=== PATIENT | female | born 1935 | race Caucasian/White ===

== ENCOUNTER → 2024-03-06 15:07 | Outpatient (CLI) | payer MEDICARE, SELFPAY ==
--- NOTE | 2024-03-06 | DI.US.S_ITS ---
PROCEDURE: US CAROTID DOPPLER BI INDICATIONS: CAROTID BRUIT TECHNIQUE: Color and pulse Doppler interrogation was performed of both carotid systems, with image documentation and velocity measurements. COMPARISON: None. FINDINGS: Stenosis calculations are based on SRU (Society of Radiologists in Ultrasound) criteria. Right side: Brachial blood pressure: 142/72 mm Hg. Common carotid artery peak systolic velocity: 64 cm/sec. Internal carotid artery peak systolic velocity: 60 cm/sec. Internal carotid artery end diastolic velocity: 11 cm/sec. External carotid artery peak systolic velocity: 101 cm/sec. ICA/CCA peak systolic ratio: 0.9 . Walton scale imaging description: Extensive atherosclerotic plaque Percent internal carotid artery stenosis: Less than 50 percent . Vertebral artery: Flow direction is antegrade. Left side: Brachial blood pressure: 134/78 mm Hg. Common carotid artery peak systolic velocity: 50 cm/sec. Internal carotid artery peak systolic velocity: 68 cm/sec. Internal carotid artery end diastolic velocity: 21 cm/sec. External carotid artery peak systolic velocity: 56 cm/sec. ICA/CCA peak systolic ratio: 1.4 . Walton scale imaging description: Moderate atherosclerotic plaque Percent internal carotid artery stenosis: Less than 50 percent . Vertebral artery: Flow direction is antegrade. IMPRESSION: Less than 50 percent stenosis of the internal carotid arteries by peak systolic velocity criteria. Dictated by: Barry Hidalgo M.D. on 03/06/2024 at 16:54 Approved by: Barry Hidalgo M.D. on 03/06/2024 at 16:56
== END ==
PROVIDERS: PCP Internal Medicine; Referring Provider Internal Medicine Interventional Cardiology; Visit Provider Internal Medicine Interventional Cardiology
DX: R09.89 Other specified symptoms and signs involving the circulatory and respiratory systems (principal); I65.23 Occlusion and stenosis of bilateral carotid arteries
CPT/HCPCS: 93880

== ENCOUNTER 2025-02-08 11:43 | Emergency (ER) | payer MEDICARE, SELFPAY ==
[2025-02-08] VITALS (28 sets, daily range): BP systolic 117–178; BP diastolic 58–116; PULSE 70–132; RESP 11–33; TEMP 37.3; O2SAT 82–100; BMI 16.4
--- NOTE | 2025-02-08 11:56 | DI.RAD.S_ITS ---
PROCEDURE: XR HIP W PEL IF DONE RT 2V INDICATIONS: fall on Saturday; right hip and low back pain TECHNIQUE: AP pelvis with lateral view(s) of the right hip(s). COMPARISON: None. FINDINGS: Bones: Diffuse osteopenia. No acute fractures identified. Degenerative changes of the bilateral hips. Lower lumbar spondylosis. No suspicious osseous lesions. Soft tissues: Nonspecific bowel gas pattern. Moderate amount of dense fecal material noted in the region of the rectum and ascending colon. Multiple air-filled loops of mildly distended bowel throughout. Partially imaged aorto bi-iliac stent graft. Moderate atherosclerotic vascular calcifications. IMPRESSION: Pelvis and right hip without fracture or dislocation. Degenerative changes of the hips. If there is high clinical suspicion for occult fracture, further evaluation with CT or MRI can be considered. Dictated by: Dionisio Hunt M.D. on 02/08/2025 at 12:23 Approved by: Dionisio Hunt M.D. on 02/08/2025 at 12:26
--- NOTE | 2025-02-08 12:18 | PC.NURSE ---
Pt is able to stand and transfer to [facility]. Warm blankets provided.
--- NOTE | 2025-02-08 13:16 | DI.CT.S_ITS ---
PROCEDURE: CT ABDOMEN PELVIS WO CON INDICATIONS: low back and hip pain TECHNIQUE: Axial sections were acquired from the lung bases to the pubic symphysis. Coronal and sagittal reformats were performed. For radiation dose reduction, the following was used: automated exposure control, adjustment of mA and/or kV according to patient size. COMPARISON: [facility], CT, CT ANGIO AORTA RUNOFF, 10/07/2024, 9:24. [facility], CT, CT ANGIO CHEST PE, 11/11/2024, 18:54. FINDINGS: Image quality: Diagnostic. Lower Chest: Prosthetic aortic valve is present. 4 mm subpleural nodule is seen at the posterolateral left lung base, unchanged when compared to the CT from 11/11/2024. Small bilateral pleural effusions. URINARY: Right Kidney: 5 mm calculus is seen at the superior pole the right kidney (900 Hounsfield units). No hydronephrosis. Right Ureter: No hydroureter. Left Kidney: Small nonobstructing renal calculi measuring 3-4 mm. Hyperdense hemorrhagic cyst is seen at the interpolar region of the left kidney. No hydronephrosis. Left Ureter: No hydroureter. Bladder: Normal wall thickness. No stones. ABDOMEN: Liver: No contour-deforming solid mass. Gallbladder: Status post cholecystectomy. Biliary ducts: No biliary dilation. Pancreas: No ductal dilation. Spleen: Size is within normal limits. Adrenal Glands: No adrenal nodules. Stomach and Bowel: Moderate to large volume of stool in the colon. Mild colonic diverticulosis without acute diverticulitis. Peritoneum: No abnormal intraperitoneal fluid. No free air. Ventral Wall: No hernia. Abdominal Nodes: No enlarged retroperitoneal or mesenteric lymph nodes. Vessels: Aortoiliac endovascular stent graft is present PELVIS: Pelvic Organs: Status post hysterectomy. Pelvic Nodes: Unremarkable. Miscellaneous: No inguinal hernias are seen. Bones: Generalized osteopenia. Acute compression fracture of the L1 vertebral body with minimal loss of vertebral body height and mild surrounding soft tissue edema. Finding is new when compared to the CT from 10/07/2024. There is 1-2 mm retropulsion of osseous fragments without significant narrowing of the bony spinal canal or neural foraminal narrowing. IMPRESSION: 1. Acute L1 vertebral body compression fracture with minimal loss of vertebral body height. 1-2 mm retropulsion of osseous fragments without significant narrowing of the bony spinal canal. 2. Bilateral nonobstructing renal calculi. No hydronephrosis or ureteral calculus. 3. Colonic diverticulosis. Moderate to large volume of stool in the colon. 4. Stable aortoiliac endovascular stent graft. Approved by: Horace Mock M.D. on 02/08/2025 at 13:53
--- NOTE | 2025-02-08 13:43 | ED.BACK ---
HPI - Back Pain/Injury General Chief Complaint: Back Pain/Injury Stated Complaint: Fell and hurt back , on blood thinners Time Seen by Provider: 02/08/25 13:15 Source: patient and family History of Present Illness HPI Narrative: 89-year-old female with history of dementia, had ground level fall Saturday 3 days ago, persisting bilateral hip pain since that time, decreased ambulation but still had been bearing weight, no new fall or injury known to the who is historian at bedside. Not known to have struck her head. She does not take blood thinner medications per . Also has new low back pain. No weakness or numbness to either leg known. No incontinence urine or stool patterns that are new. Related Data Allergies Allergy/AdvReac Type Severity Reaction Status Date / Time No Known Drug Allergies Allergy Verified 02/08/25 11:47 Patient History Social History Smoking Status: Former smoker Smoking Status: Former smoker Exam Narrative Exam Narrative: GENERAL: Well-developed patient, in mild distress. HEAD: Atraumatic. Normocephalic. EYES: Pupils equal round and reactive. Extraocular motions intact. No scleral icterus. No injection or drainage. ENT: Nose without bleeding, purulent drainage. Throat without erythema, tonsillar hypertrophy or exudate. Airway patent. NECK: Trachea midline. Non tender CARDIOVASCULAR: Regular rate and rhythm without murmurs, gallops, or rubs. RESPIRATORY: Clear to auscultation. Breath sounds equal bilaterally. No wheezes, rales, or rhonchi. GASTROINTESTINAL: Abdomen soft, non-tender, nondistended. EXTREMITIES: No limb length discrepancy, mild tenderness left anterior hip without bruising or skin changes, no tenderness over the left greater trochanteric region. No tenderness over mid distal left thigh, knee, foreleg, ankle or foot. BACK: Nontender without deformity or crepitance. No flank tenderness. NEURO: AOx3. Motor functions grossly nonfocal SKIN: No rash or erythema of visible areas Initial Vital Signs Initial Vital Signs: Vital Signs Temperature 99.2 F 02/08/25 11:47 Pulse Rate 70 02/08/25 11:47 Respiratory Rate 18 02/08/25 11:47 Blood Pressure 160/70 H 02/08/25 11:47 Course Orders Ordered: ED Orders 02/08/25 13:16 CT abdomen pelvis wo con Stat 02/08/25 14:36 XR chest 1V Stat RT Consult Eval and Treat NOW 02/08/25 16:07 CBC Auto Diff [Complete Blood Count AUTO DIFF] Stat CMP [Comprehensive Metabolic Panel] Stat Prothrombin Time INR Stat 02/08/25 16:40 Consult to Physical Therapy Evaluate & Treat Discontinued Medications POTASSIUM CHLORIDE IN WATER (Potassium Cl 10 Meq/100 Ml Leni) 10 meq in 100 mls @ 100 mls/hr IV Q1H BIBI Stop: 02/08/25 18:59 Last Infusion: 02/08/25 19:48 Dose: Infused Documented By: Admin: 02/08/25 18:29 Dose: 100 mls/hr Documented By: Infusion: 02/08/25 18:29 Dose: Infused Documented By: Admin: 02/08/25 17:35 Dose: 100 mls/hr Documented By: Lorazepam (Lorazepam 2 Mg/Ml Inj) 2 mg IV NOW ONE Stop: 02/08/25 17:16 Last Admin: 02/08/25 17:28 Dose: 2 mg Documented By: Midazolam HCl (Midazolam 5 Mg/Ml Vial) 1 mg IM NOW ONE Stop: 02/08/25 15:55 Last Admin: 02/08/25 15:55 Dose: 1 mg Documented By: OLLIE Midazolam HCl (Midazolam 2 Mg/2 Ml Vial) 1 mg IV NOW ONE Stop: 02/08/25 16:11 Last Admin: 02/08/25 16:11 Dose: 1 mg Documented By: OLLIE Midazolam HCl (Midazolam 2 Mg/2 Ml Vial) 2 mg IV NOW ONE Stop: 02/08/25 17:14 Last Admin: 02/08/25 18:16 Dose: Not Given Documented By: Vital Signs Vital signs: Vital Signs - 8 hr 02/08/25 14:25 02/08/25 14:25 02/08/25 14:30 Pulse Rate 95 H Respiratory Rate Blood Pressure 142/67 H 152/72 H Pulse Oximetry Oxygen Delivery Method Oxygen Flow Rate 02/08/25 14:30 02/08/25 14:43 02/08/25 15:00 Pulse Rate 92 H 90 92 H Respiratory Rate 11 L 21 Blood Pressure Pulse Oximetry 86 L 92 94 Oxygen Delivery Method Room Air Nasal Cannula Oxygen Flow Rate 3 02/08/25 15:00 02/08/25 15:30 02/08/25 15:30 Pulse Rate 97 H Respiratory Rate 21 Blood Pressure 150/69 H 163/73 H Pulse Oximetry 91 Oxygen Delivery Method Oxygen Flow Rate 02/08/25 15:41 02/08/25 16:00 02/08/25 16:00 Pulse Rate 112 H 132 H Respiratory Rate 14 31 H Blood Pressure 173/83 H Pulse Oximetry 98 Oxygen Delivery Method Oxygen Flow Rate 02/08/25 16:15 02/08/25 16:17 02/08/25 16:21 Pulse Rate 109 H 112 H 105 H Respiratory Rate 25 H 14 23 Blood Pressure Pulse Oximetry 94 93 93 Oxygen Delivery Method Nasal Cannula Nasal Cannula Nasal Cannula Oxygen Flow Rate 4 4 4 02/08/25 16:21 02/08/25 16:30 02/08/25 16:30 Pulse Rate 101 H Respiratory Rate 23 Blood Pressure 126/60 117/58 L Pulse Oximetry 92 Oxygen Delivery Method Oxygen Flow Rate 02/08/25 16:45 02/08/25 17:00 02/08/25 17:01 Pulse Rate 103 H 110 H 111 H Respiratory Rate 23 33 H 32 H Blood Pressure Pulse Oximetry 94 93 91 Oxygen Delivery Method Nasal Cannula Oxygen Flow Rate 4 02/08/25 17:01 02/08/25 17:15 02/08/25 17:30 Pulse Rate 103 H 89 Respiratory Rate 27 H 25 H Blood Pressure 156/116 H Pulse Oximetry 97 98 Oxygen Delivery Method Oxygen Flow Rate 02/08/25 17:30 02/08/25 17:45 02/08/25 18:00 Pulse Rate 93 H 87 Respiratory Rate 25 H 24 Blood Pressure 154/70 H Pulse Oximetry 98 97 Oxygen Delivery Method Oxygen Flow Rate 02/08/25 18:00 02/08/25 18:15 02/08/25 18:30 Pulse Rate 89 91 H Respiratory Rate 24 25 H Blood Pressure 159/73 H Pulse Oximetry 95 94 Oxygen Delivery Method Oxygen Flow Rate 02/08/25 18:30 02/08/25 18:45 02/08/25 18:46 Pulse Rate 85 89 Respiratory Rate 20 Blood Pressure 178/75 H Pulse Oximetry 82 L 94 Oxygen Delivery Method Oxygen Flow Rate 02/08/25 18:46 02/08/25 19:00 02/08/25 19:00 Pulse Rate 88 Respiratory Rate 22 Blood Pressure 141/63 H 140/65 Pulse Oximetry 92 Oxygen Delivery Method Oxygen Flow Rate 02/08/25 19:15 02/08/25 19:30 02/08/25 19:30 Pulse Rate 91 H 102 H Respiratory Rate 25 H 26 H Blood Pressure 153/90 H Pulse Oximetry 95 100 Oxygen Delivery Method Simple Mask Oxygen Flow Rate 4 02/08/25 19:45 02/08/25 20:00 02/08/25 20:00 Pulse Rate 104 H 93 H Respiratory Rate 24 26 H Blood Pressure 162/70 H Pulse Oximetry 99 99 Oxygen Delivery Method Room Air Room Air Oxygen Flow Rate MDM - Back Pain/Injury Lab Data Attestation: I reviewed the patient's lab results. Lab results narrative: White blood cell count 8200, hemoglobin 12.7, platelets adequate. Glucose 116. BUN 24 with creatinine 0.65 normal renal function. Sodium 138, potassium 3.1 low noted, serum chloride 96, serum CO2 35 elevated. Mild transaminase elevation, normal total bilirubin and alkaline phosphatase. 02/08/25 16:07 02/08/25 16:07 Labs: Lab Results 02/08/25 Range/Units 16:07 WBC 8.2 (4.5-11.0) X10^3/uL RBC 4.39 (4.0-5.2) X10^6/uL Hgb 12.7 (12.0-16.0) g/dL Hct 38.2 (36-46) % MCV 87.0 (80-100) fL MCH 28.9 (26-34) PG MCHC 33.3 (30-36) % RDW 16.3 H (11.6-14.8) % Plt Count 173 (150-400) X10^3/uL Neut % (Auto) 78.0 H (50-75) % Lymph % (Auto) 12.6 L (25-40) % [place] % (Auto) 8.1 (3-14) % Eos % (Auto) 0.8 L (2-4) % Baso % (Auto) 0.5 (0-2) % Neut # (Auto) 6400 (6375-8887) /uL Lymph # (Auto) 1000 L (2315-7686) /uL [place] # (Auto) 700 (0-900) /uL Eos # (Auto) 100 (0-450) /uL Baso # (Auto) 0 (0-100) /uL PT 12.6 H (9.4-12.5) SECONDS INR 1.1 (0.9-1.3) Sodium 138 (137-145) mmol/L Potassium 3.1 L (3.4-5.1) mmol/L Chloride 96 L (98-107) mmol/L Carbon Dioxide 35 H (22-32) mmol/L BUN 24 H (7-17) mg/dL Creatinine 0.65 (0.52-1.04) mg/dL Estimated GFR > 60 (>60) mL/min BUN/Creatinine Ratio 36.9 H (6-22) Glucose 116 H (80-110) mg/dL Calcium 9.7 (8.4-10.2) mg/dL Total Bilirubin 1.1 (0.2-1.3) mg/dL AST 41 H (14-36) IU/L ALT 40 H (<35) IU/L Alkaline Phosphatase 100 (38-126) U/L Total Protein 7.7 (6.3-8.2) g/dL Albumin 4.0 (3.5-5.0) g/dL Globulin 3.7 (1.7-4.1) g/dL Albumin/Globulin Ratio 1.1 (1.0-2.8) Imaging Data Extremity x-ray #1: Radiologist's Impression: [place] [address] XRay Report Signed Patient: Norah Gresham I MR#: [id number] : 1935 Acct:[id number] Age/Sex: 89 / F Date of Service: 02/08/25 Loc: ED Accession Number: [id number] Procedure: XR hip w pel if done RT 2V Ordering Provider: Vinay Tierney MD PROCEDURE: XR HIP W PEL IF DONE RT 2V INDICATIONS: fall on Saturday; right hip and low back pain TECHNIQUE: AP pelvis with lateral view(s) of the right hip(s). COMPARISON: None. FINDINGS: Bones: Diffuse osteopenia. No acute fractures identified. Degenerative changes of the bilateral hips. Lower lumbar spondylosis. No suspicious osseous lesions. Soft tissues: Nonspecific bowel gas pattern. Moderate amount of dense fecal material noted in the region of the rectum and ascending colon. Multiple air-filled loops of mildly distended bowel throughout. Partially imaged aorto bi-iliac stent graft. Moderate atherosclerotic vascular calcifications. IMPRESSION: Pelvis and right hip without fracture or dislocation. Degenerative changes of the hips. If there is high clinical suspicion for occult fracture, further evaluation with CT or MRI can be considered. Dictated by: Dionisio Hunt M.D. on 02/08/2025 at 12:23 Approved by: Dionisio Hunt M.D. on 02/08/2025 at 12:26 CT abdomen and pelvis: Radiologist's Impression: [address] [address] [address] Scan Report Signed Patient: Norah Gresham I MR#: [id number] : 1935 Acct:[id number] Age/Sex: 89 / F Date of Service: 02/08/25 Loc: ED Accession Number: [id number] Procedure: CT abdomen pelvis wo con Ordering Provider: Vinay Tierney MD PROCEDURE: CT ABDOMEN PELVIS WO CON INDICATIONS: low back and hip pain TECHNIQUE: Axial sections were acquired from the lung bases to the pubic symphysis. Coronal and sagittal reformats were performed. For radiation dose reduction, the following was used: automated exposure control, adjustment of mA and/or kV according to patient size. COMPARISON: [facility], CT, CT ANGIO AORTA RUNOFF, 10/07/2024, 9:24. [facility], CT, CT ANGIO CHEST PE, 11/11/2024, 18:54. FINDINGS: Image quality: Diagnostic. Lower Chest: Prosthetic aortic valve is present. 4 mm subpleural nodule is seen at the posterolateral left lung base, unchanged when compared to the CT from 11/11/2024. Small bilateral pleural effusions. URINARY: Right Kidney: 5 mm calculus is seen at the superior pole the right kidney (900 Hounsfield units). No hydronephrosis. Right Ureter: No hydroureter. Left Kidney: Small nonobstructing renal calculi measuring 3-4 mm. Hyperdense hemorrhagic cyst is seen at the interpolar region of the left kidney. No hydronephrosis. Left Ureter: No hydroureter. Bladder: Normal wall thickness. No stones. ABDOMEN: Liver: No contour-deforming solid mass. Gallbladder: Status post cholecystectomy. Biliary ducts: No biliary dilation. Pancreas: No ductal dilation. Spleen: Size is within normal limits. Adrenal Glands: No adrenal nodules. Stomach and Bowel: Moderate to large volume of stool in the colon. Mild colonic diverticulosis without acute diverticulitis. Peritoneum: No abnormal intraperitoneal fluid. No free air. Ventral Wall: No hernia. Abdominal Nodes: No enlarged retroperitoneal or mesenteric lymph nodes. Vessels: Aortoiliac endovascular stent graft is present PELVIS: Pelvic Organs: Status post hysterectomy. Pelvic Nodes: Unremarkable. Miscellaneous: No inguinal hernias are seen. Bones: Generalized osteopenia. Acute compression fracture of the L1 vertebral body with minimal loss of vertebral body height and mild surrounding soft tissue edema. Finding is new when compared to the CT from 10/07/2024. There is 1-2 mm retropulsion of osseous fragments without significant narrowing of the bony spinal canal or neural foraminal narrowing. IMPRESSION: 1. Acute L1 vertebral body compression fracture with minimal loss of vertebral body height. 1-2 mm retropulsion of osseous fragments without significant narrowing of the bony spinal canal. 2. Bilateral nonobstructing renal calculi. No hydronephrosis or ureteral calculus. 3. Colonic diverticulosis. Moderate to large volume of stool in the colon. 4. Stable aortoiliac endovascular stent graft. Approved by: Horace Mock M.D. on 02/08/2025 at 13:53 MDM Narrative Medical decision making narrative: 89-year-old female with history of dementia, had ground level fall 3 days ago with bilateral hip pain, no known head strike, no obvious lesions or swelling or tenderness to face or scalp or neck, has persisting hip pain, also complains of new low back pain. Screening x-ray right hip with pelvis ordered at triage showed no definite fractures. CT abdomen and pelvis noncontrast study ordered. CT abdomen and pelvis shows acute appearing L1 fracture with minimal loss of height but 1-2 mm of retropulsion, not compressing the spinal cord. See radiology report. Chest x-ray showed no acute changes, see radiology report. We will consult neurosurgery to see if this is stable for management here, versus transfer. Case discussed with neurosurgery [facility] Dr Luis, who reviewed imaging and feels that patient requires further evaluation for stability, recommends sizing for corset lumbar support brace. If patient can tolerate the brace that he recommends upright lumbar spine x-ray to demonstrate stability. If stable then can be managed here. If unstable then recommends re-consultation and likely transfer. 1600, patient became quite agitated, no IV access, IM Versed dose. We will attempt IV access. Will consult Physical Therapy regarding for lumbar corset. Potassium level 3.1 low, patient has received sedative medications, we will give IV potassium 20 mEq. PT consulted, apparently they do not perform lumbar corset or TLSO braces here per phone call between on-call PT and [facility]. Will reconsult Neurosurgery for possible transfer. 1839, case discussed with neurosurgery Dr. Luis once again, who accepts patient for transfer to their ED [facility]. Ground transport to ED-[facility] for further neurosurgical evaluation. RN reports was informed on transfer recommendation Discharge Plan Departure Patient Disposition: [facility] Clinical Impression: Lumbar vertebral fracture, Agitation, History of dementia, Hypokalemia Referrals: Simón Hoang MD [Primary Care Provider] -
--- NOTE | 2025-02-08 14:24 | PC.NURSE ---
Pt lying back in [place]. Updated pt/family. Pt continues to have pain to buttocks.
--- NOTE | 2025-02-08 14:36 | DI.RAD.S_ITS ---
PROCEDURE: XR CHEST 1V INDICATIONS: Shortness of breath TECHNIQUE: One view of the chest was acquired. COMPARISON: [facility], CR, XR CHEST 1 VIEW, 11/11/2024, 16:42. [facility], CT, CT ANGIO CHEST PE, 11/11/2024, 18:54. FINDINGS: Surgical changes and devices: Prosthetic heart valve is present. Lungs and pleura: Bilateral emphysematous changes. Nodular opacity at the right lateral lung zone better seen on prior CT. No pleural effusions or pneumothorax. Mediastinum: Mediastinal contours appear normal. Heart size is normal. Bones and chest wall: No suspicious bony lesions. Overlying soft tissues appear unremarkable. IMPRESSION: 1. No acute cardiopulmonary abnormality is seen. 2. Persistent left upper lobe pulmonary nodule. Approved by: Horace Mock M.D. on 02/08/2025 at 15:47
[2025-02-08] MEDS: MIDAZOLAM 5 MG/ML VIAL 1 MG IM (15:55)
--- NOTE | 2025-02-08 16:00 | PC.NURSE ---
Pt climbing out of bed, pulling monitoring equipment off and not allowing staff to help. Sats decreased to 68% on RA. Dr Tierney notified. RT called to assist. Pt given IM versed by Blaire per MD order. Allowing staff to place NRB over face and mouth. Skin tone improved from light blue to pink/red. Placed on NC 3L, Sats 94-95
[2025-02-08] MEDS: MIDAZOLAM 2 MG/2 ML VIAL 1 MG IV (16:11)
[2025-02-08 16:33] LABS: Add Manual Diff / Slide Review NO; Basophils Absolute Auto 0 /uL (0-100); Basophils Percent Auto 0.5 % (0-2); Eosinophils Absolute Auto 100 /uL (0-450); Eosinophils Percent Auto 0.8 % (2-4); Hematocrit 38.2 % (36-46); Hemoglobin 12.7 g/dL (12.0-16.0); INR 1.1 (0.9-1.3); Lymphocytes Absolute Auto 1000 /uL (1100-4500); Lymphocytes Percent Auto 12.6 % (25-40); Mean Corpuscular HGB Conc 33.3 % (30-36); Mean Corpuscular Hemoglobin 28.9 PG (26-34); Monocytes Absolute Auto 700 /uL (0-900); Monocytes Percent Auto 8.1 % (3-14); Neutrophils Absolute Auto 6400 /uL (1500-7000); Platelet Count 173 X10^3/uL (150-400); Prothrombin Time 12.6 SECONDS (9.4-12.5); Red Blood Cell Count 4.39 X10^6/uL (4.0-5.2); Red Cell Distribution Width 16.3 % (11.6-14.8); White Blood Cell Count 8.2 X10^3/uL (4.5-11.0)
[2025-02-08 16:42] LABS: Alanine Aminotransferase 40 IU/L (<35); Albumin Globulin Ratio 1.1 (1.0-2.8); Alkaline Phosphatase 100 U/L (38-126); Aspartate Aminotransferase 41 IU/L (14-36); BUN Creatinine Ratio 36.9 (6-22); Bilirubin Total 1.1 mg/dL (0.2-1.3); Blood Urea Nitrogen 24 mg/dL (7-17); Calcium 9.7 mg/dL (8.4-10.2); Carbon Dioxide 35 mmol/L (22-32); Chloride 96 mmol/L (98-107); Estimated Glomerular Filt Rate > 60 mL/min (>60); Globulin 3.7 g/dL (1.7-4.1); Glucose 116 mg/dL (80-110); HEMOLYSIS < 15 (0-50); Potassium 3.1 mmol/L (3.4-5.1); Sodium 138 mmol/L (137-145); Total Protein 7.7 g/dL (6.3-8.2)
--- NOTE | 2025-02-08 16:56 | PT-IP ANOTE ---
Nsg calls acute PT about new order after pt found to have the followin. Acute L1 vertebral body compression fracture with minimal loss of vertebral body height. 1-2 mm retropulsion of osseous fragments without significant narrowing of the bony spinal canal. 2. Bilateral nonobstructing renal calculi. No hydronephrosis or ureteral calculus. 3. Colonic diverticulosis. Moderate to large volume of stool in the colon. 4. Stable aortoiliac endovascular stent graft. Nsg asks if PT can fit pt for lumbar corset so that pt can stand and have a standing x-ray. This PT does not feel that this is in PT scope of practice and communicated that hospital only as off the shelf TLSO. PT understands that providers were consulted. Recommend [facility] consult and/or dietary aide consult to obtain and appropriate custom brace for patient. Noted retropulsion and osseous fragments. PT left message with rehabilitation aide and spoke with another PT teammate to determine best plan.
[2025-02-08] MEDS: LORazepam 2 MG/ML INJ IV (17:28)
[2025-02-08] MEDS: POTASSIUM CHLORIDE IN WATER 10 MEQ/100 ML PIGGYBACK 100 MEQ IV ×2 (17:35→18:29)
--- NOTE | 2025-02-08 17:35 | PC.NURSE ---
Pt is pulling and ripping off oxygen. Pt is agitated and trying to climb out of bed. Pt does not orient of participate in cares. Dr Tierney notified. Verbal order received for 2 mg Ativan, IV.
--- NOTE | 2025-02-08 20:14 | PC.NURSE ---
and DPOA called and notified that pt is on her way to [facility].
== END 2025-02-08 20:16 | disposition short-term general hospital (02) ==
PROVIDERS: Emergency Provider Emergency Medicine; PCP Internal Medicine
DX: S32.018A Other fracture of first lumbar vertebra, initial encounter for closed fracture (principal); E87.6 Hypokalemia; M25.552 Pain in left hip; M25.551 Pain in right hip; F03.911 Unspecified dementia, unspecified severity, with agitation; W18.30XA Fall on same level, unspecified, initial encounter
CPT/HCPCS: 36415; 71045; 73502; 74176; 80053; 85025; 85610; 96365; 96366; 96372; 96375; 99285; J2060; J2250